=== PATIENT | female | born 1960 | race Two or more races ===

== ENCOUNTER 2018-08-20 15:47 | Emergency (ER) | payer MEDICARE, MEDICAID ==
[~2018-08-20] VITALS: Ht 165.1 cm; Wt 72.6 kg
[2018-08-20 16:45] LABS: Basophils # (auto) 0.1 uL; Basophils % (auto) 0.5 % (0.0-2.0); Eosinophils # (auto) 0 uL; Eosinophils % (auto) 0.1 % (0.0-7.0); Hematocrit 46.2 % (36.0-46.0); Hemoglobin 15.5 g/dL (12.2-16.2); Lymphocytes # (auto) 3.5 uL; Lymphocytes % (auto) 30.1 % (10.0-50.0); Mean Corpuscular Hemoglobin 30.4 pg (28.0-32.0); Mean Corpuscular Hgb Conc. 33.5 g/dL (32.0-36.0); Mean Corpuscular Volume 90.9 fL (80.0-100.0); Neutrophils % (auto) 60.3 % (37.0-80.0); Nucleated Red Blood Cells % 0.2 %; Platelet Count (auto) 265 10^3/uL (140-450); Red Blood Cells 5.08 10^6/uL (4.0-5.20); Red Cell Distribution Width 13.3 % (11.8-14.3); White Blood Cell 11.6 10^3/uL (4.4-10.8)
[2018-08-20 17:07] LABS: Anion Gap 5 (5-15); Blood Urea Nitrogen 20 mg/dL (7-18); Calcium 8.8 mg/dL (8.5-10.1); Carbon Dioxide 23 mmol/L (21-32); Chloride 111 mmol/L (98-107); Glucose 86 mg/dL (74-106); Sodium 139 mmol/L (136-145)
[2018-08-20 17:13] LABS: Alanine Aminotransferase 36 U/L (13-56); Alkaline Phosphatase 123 U/L (45-117); Aspartate Aminotransferase 18 U/L (15-37); BUN/Creatinine Ratio 30.3; Bilirubin, Total 0.5 mg/dL (0.2-1.0); GFR African American 118 mL/min; GFR Non-African American 97 mL/min; Total Protein 8.1 g/dL (6.4-8.2)
[2018-08-20 17:20] LABS: Potassium 2.9 mmol/L (3.5-5.1)
[2018-08-20] MEDS ORDERED: SODIUM CHLORIDE 0.9% 1,000 ML IV ONE (18:09)
[2018-08-20] MEDS ORDERED: ASPirin 81 mg TAB PO ONE (18:15)
[2018-08-20] MEDS ORDERED: POTASSIUM EFFERVESENT TAB 25 MEQ PO ONE (18:15)
[2018-08-20 20:21] VITALS: BP 138/74
== END 2018-08-20 22:17 | disposition home or self-care (01) ==
LOC: ER 15:47 → EDBD 15:47 → ER 22:17
DX: R07.9 Chest pain, unspecified (principal); M06.9 Rheumatoid arthritis, unspecified; E87.6 Hypokalemia; R51 Headache; R06.02 Shortness of breath; I10 Essential (primary) hypertension; F17.210 Nicotine dependence, cigarettes, uncomplicated; Z88.5 Allergy status to narcotic agent; Z90.49 Acquired absence of other specified parts of digestive tract; Z90.710 Acquired absence of both cervix and uterus
CPT/HCPCS: 36415; 71046; 80053; 83735; 84484; 85025; 93005; 94761

== ENCOUNTER 2021-01-24 06:08 | Inpatient (IN) | payer MEDICARE, MEDICAID ==
[~2021-01-24] VITALS: Ht 165.1 cm; Wt 85.4 kg
[~2021-01-24 06:08] MED LIST: ATOR10TA PO; CARI-277 PO; HYDR-4188 PO; HYDR25TA4 PO; LEFL20TA PO; LORA-622 PO; METO-289 PO; OMEP20TA PO; OXYC20TA69 PO; PREG75CA PO; ROPI1TAB4 PO; TRAZ-184 PO; VENL-192 PO
[2021-01-24] MEDS ORDERED: ceFAZolin 1GM/50ML 100 ML IV ONE (06:48)
[2021-01-24] MEDS ORDERED: fentaNYL CITRATE 100 MCG/2 ML VL ONE (06:54)
[2021-01-24] MEDS ORDERED: fentaNYL CITRATE 5 ML ONE (06:54)
[2021-01-24] MEDS ORDERED: ONDANSETRON HCL 4 MG/2 ML VIAL ONE (06:55)
[2021-01-24] MEDS ORDERED: MIDAZOLAM HCL 1MG/1ML-2 ML VIAL ONE (06:55)
[2021-01-24] MEDS ORDERED: PROPOFOL 10 MG/ML 20 ML IV ONE (06:55)
[2021-01-24] MEDS ORDERED: ROCURONIUM 10MG/ML 10ML VIAL IV ONE (06:55)
[2021-01-24] MEDS ORDERED: SODIUM CHLORIDE LOCK 10 ML ONE (06:55)
[2021-01-24] MEDS ORDERED: TRANEXAMIC ACID 20 ML ONE (07:08)
[2021-01-24] MEDS ORDERED: BACITRACIN INJ 50000 UNIT VIAL ONE (07:08)
[2021-01-24] MEDS ORDERED: BUPIVACAINE HCL 50 ML ONE (07:14)
[2021-01-24] MEDS ORDERED: SUCCINYLCHOLINE CHLORIDE 20 MG/ML 10ML VIAL IV ONE (07:15)
[2021-01-24] MEDS ORDERED: METOCLOPRAMIDE HCL 5MG/ml INJ 2ml VIAL IV PRN (08:00)
[2021-01-24] MEDS ORDERED: HYDROmorphone HCL 2 MG/ML VL IV PRN ×3 (08:00→10:30)
[2021-01-24] MEDS ORDERED: fentaNYL CITRATE 100 MCG/2 ML VL IV PRN (08:00)
[2021-01-24] MEDS ORDERED: VANCOMYCIN HCL 1000 MG VL ONE (08:11)
[2021-01-24] MEDS ORDERED: NEOSTIGMINE 1 MG/ML INJ (10mg/10ML VIAL) ONE (08:26)
[2021-01-24] MEDS ORDERED: DexAMETHasone SOD PHOS 10MG/1ML VIAL INJ ONE ×2 (08:26→11:25)
[2021-01-24] MEDS ORDERED: GLYCOPYRROLATE 0.2 MG/ML 1ML VIAL ONE (08:26)
[2021-01-24] MEDS ORDERED: MEPERIDINE HCL (25 MG/ML) 1ML VIAL ONE ×2 (10:10→10:13)
[2021-01-24] MEDS ORDERED: MORPHINE SULF INJ 2 MG/ML SYRINGE 1ML IV PRN (10:30)
[2021-01-24] MEDS ORDERED: NITROGLYCERIN 0.4 MG SL TAB SL PRN (10:30)
[2021-01-24] MEDS: HYDROmorphone HCL 2 MG/ML VL ONE ×4 (10:30→14:00)
[2021-01-24] MEDS: LACTATED RINGER'S 1,000 ML IV SCH ×2 (10:30→21:38)
[2021-01-24] MEDS ORDERED: BUPIVACAINE 0.5% P/F INJ 10 ML VIAL ONE ×2 (10:49→10:51)
[2021-01-24] MEDS: ceFAZolin 1GM/50ML 50 ML IV SCH ×2 (12:18→17:57)
[2021-01-24 16:34] VITALS: BP 142/67
[2021-01-24 16:44] VITALS: BP 141/61
[2021-01-24 16:48] VITALS: BP 141/61
[2021-01-24] MEDS: ONDANSETRON HCL 4 MG/2 ML VIAL IV PRN (17:39)
[2021-01-24] MEDS: HYDROmorphone HCL 2 MG/ML VL IV PRN ×3 (17:40→23:24)
[2021-01-24] MEDS: KETOROLAC TROMETH 30 MG/ML 1ML VIAL IV SCH (21:39)
[2021-01-24] MEDS: DOCUSATE SOD 100 MG CAP PO SCH (21:39)
[2021-01-24 22:00] VITALS: BP 134/59
[2021-01-25] VITALS (7 sets, daily range): BP systolic 143–181; BP diastolic 64–72
[2021-01-25] MEDS: ceFAZolin 1GM/50ML 50 ML IV SCH (01:07)
[2021-01-25] MEDS: HYDROmorphone HCL 2 MG/ML VL IV PRN ×10 (01:29→22:53)
[2021-01-25] MEDS: LACTATED RINGER'S 1,000 ML IV SCH ×2 (06:18→15:06)
[2021-01-25 06:45] LABS: Hemoglobin 12.3 g/dL (12.2-16.2)
[2021-01-25] MEDS ORDERED: ROPI2TAB31 PO (06:59)
[2021-01-25] MEDS ORDERED: CARI-277 PO (06:59)
[2021-01-25] MEDS ORDERED: VENL-192 PO (06:59)
[2021-01-25] MEDS ORDERED: TRAZ100T3 PO (06:59)
[2021-01-25] MEDS ORDERED: METO-289 PO (06:59)
[2021-01-25] MEDS ORDERED: PREG75CA PO (06:59)
[2021-01-25] MEDS ORDERED: HYDR-4188 PO (06:59)
[2021-01-25] MEDS ORDERED: OXY5T PO (06:59)
[2021-01-25] MEDS ORDERED: LEFL20TA PO (06:59)
[2021-01-25 07:06] LABS: Albumin 3.1 g/dL (3.4-5.0); BUN/Creatinine Ratio 29.6; Bilirubin, Total 0.5 mg/dL (0.2-1.0); Calcium 8.4 mg/dL (8.5-10.1); Total Protein 6.1 g/dL (6.4-8.2)
[2021-01-25] MEDS: KETOROLAC TROMETH 30 MG/ML 1ML VIAL IV SCH ×2 (09:41→21:34)
[2021-01-25] MEDS: hydrOXYchloroQUINE SULFATE 200 MG TAB PO SCH ×2 (09:46→21:35)
[2021-01-25] MEDS: DOCUSATE SOD 100 MG CAP PO SCH ×2 (09:46→21:35)
[2021-01-25] MEDS: PANTOPRAZOLE 40 MG TAB PO SCH (09:46)
[2021-01-25] MEDS: METOPROLOL SUCCINATE XL 50 MG TAB PO SCH (09:47)
[2021-01-25] MEDS: LORATADINE 10 MG TAB PO SCH (09:47)
[2021-01-25] MEDS: HCTZ 25 MG TAB PO SCH (09:48)
[2021-01-25] MEDS: PREGABALIN CAPSULE 75 MG CAP PO SCH ×2 (09:48→21:35)
[2021-01-25] MEDS: ONDANSETRON HCL 4 MG/2 ML VIAL IV PRN ×2 (10:54→22:58)
[2021-01-25] MEDS: VENLAFAXINE HCL 25MG TABLET PO SCH (10:55)
[2021-01-25] MEDS ORDERED: LABETALOL HCL 5 MG/ML 4ML SYRINGE IV PRN ×2 (13:45→19:15)
[2021-01-25] MEDS: CARISOPRODOL 350 MG TAB PO SCH ×2 (15:05→21:35)
[2021-01-25] MEDS ORDERED: hydrALAZINE HCL 25 MG TAB PO ONE (17:30)
[2021-01-25] MEDS ORDERED: ATORVASTATIN 20 MG TAB PO SCH (18:00)
[2021-01-25] MEDS: hydrALAZINE HCL 25 MG TAB PO SCH (21:35)
[2021-01-25] MEDS ORDERED: ROPINIROLE HYDROCHLORIDE 1 MG PO PRN (22:00)
[2021-01-25] MEDS ORDERED: traZODone HCL 50 MG TAB PO PRN (22:00)
[2021-01-26] MEDS: HYDROmorphone HCL 2 MG/ML VL IV PRN ×6 (01:04→15:52)
[2021-01-26] MEDS: LACTATED RINGER'S 1,000 ML IV SCH ×2 (03:05→16:25)
[2021-01-26] MEDS: OXYCODONE W/ ACETAMINOPHEN 5/325MG TABLET PO PRN ×2 (04:42)
[2021-01-26 05:00] VITALS: BP 154/70
[2021-01-26] MEDS: hydrALAZINE HCL 25 MG TAB PO SCH ×2 (05:48→13:45)
[2021-01-26] MEDS: CARISOPRODOL 350 MG TAB PO SCH ×2 (05:48→13:45)
[2021-01-26 07:37] LABS: Hematocrit 39.6 % (36.0-46.0); Hemoglobin 13.1 g/dL (12.2-16.2)
[2021-01-26 09:00] VITALS: BP 146/73
[2021-01-26] MEDS: DOCUSATE SOD 100 MG CAP PO SCH (09:12)
[2021-01-26] MEDS: PREGABALIN CAPSULE 75 MG CAP PO SCH (09:13)
[2021-01-26] MEDS: hydrOXYchloroQUINE SULFATE 200 MG TAB PO SCH (09:13)
[2021-01-26] MEDS: METOPROLOL SUCCINATE XL 50 MG TAB PO SCH (09:15)
[2021-01-26] MEDS: PANTOPRAZOLE 40 MG TAB PO SCH (09:15)
[2021-01-26] MEDS: HCTZ 25 MG TAB PO SCH (09:15)
[2021-01-26] MEDS: VENLAFAXINE HCL 25MG TABLET PO SCH (09:16)
[2021-01-26] MEDS: LORATADINE 10 MG TAB PO SCH (09:16)
[2021-01-26] MEDS: KETOROLAC TROMETH 30 MG/ML 1ML VIAL IV SCH (10:53)
[2021-01-26 13:00] VITALS: BP 144/80
[2021-01-26] MEDS ORDERED: PNEUMOCOCCAL VACC POLYS 25 MCG/0.5 ML VIAL IM ONE (14:00)
[2021-01-26 14:53] VITALS: BP 124/55
[2021-01-26 17:00] VITALS: BP 150/77
== END 2021-01-26 17:20 | disposition home or self-care (01) | DRG 483 ==
LOC: SUR 06:08 → OVERFLOW 10:21 → CENTRAL 14:30 → TELE-CENTR 01-25 19:22
PROVIDERS: ADMIT Orthopaedic Surgery Sports Medicine; ATTEND Internal Medicine
PROC: 0RRJ00Z Replacement of Right Shoulder Joint with Reverse Ball and Socket Synthetic Substitute, Open Approach (ICD-10-PCS; principal; 2021-01-24 07:25)
DX: M19.011 Primary osteoarthritis, right shoulder (principal); M06.9 Rheumatoid arthritis, unspecified; E78.5 Hyperlipidemia, unspecified; G62.9 Polyneuropathy, unspecified; G89.29 Other chronic pain; I10 Essential (primary) hypertension; M19.90 Unspecified osteoarthritis, unspecified site; Z20.822 Contact with and (suspected) exposure to COVID-19; Z88.6 Allergy status to analgesic agent
CPT/HCPCS: 36415; 73020; 80053; 85014; 85018; 86850; 86900; 86901; A4565; G0378; J0330; J0690; J1100; J1885; J2250; J2405; J2704; J3490

== ENCOUNTER 2023-05-09 06:26 | Inpatient (IN) | payer MEDICARE, MEDICAID ==
[2023-05-07 12:43] LABS: Basophils # (auto) 0.1 10 ^3/uL (0-0.2); Basophils % (auto) 0.7 % (0.0-2.0); Eosinophils # (auto) 0 10 ^3/uL (0-0.8); Eosinophils % (auto) 0.2 % (0.0-7.0); Hematocrit 42.7 % (36.0-46.0); Hemoglobin 14.4 g/dL (12.2-16.2); Lymphocytes # (auto) 2.4 10 ^3/uL (0.4-5.4); Lymphocytes % (auto) 29.6 % (10.0-50.0); Mean Corpuscular Hgb Conc. 33.7 g/dL (32.0-36.0); Mean Corpuscular Volume 91.9 fL (80.0-100.0); Monocytes # (auto) 0.4 10 ^3/uL (0-1.3); Monocytes % (auto) 4.9 % (0.0-12.0); Neutrophils # (auto) 5.4 10 ^3/uL (1.6-8.6); Neutrophils % (auto) 64.6 % (37.0-80.0); Nucleated Red Blood Cells % 0.1 %; Red Blood Cells 4.64 10^6/uL (4.0-5.20); Red Cell Distribution Width 12.5 % (11.8-14.3); White Blood Cell 8.3 10^3/uL (4.4-10.8)
[2023-05-07 12:44] LABS: INR 1.09 (0.9-1.15); Partial Thromboplastin Time 26.3 SEC (24.5-34.5); Prothrombin Time 11.4 sec (9.3-11.8)
[2023-05-07 13:10] LABS: Urine Bacteria NONE SEEN /hpf (None Seen); Urine Blood Negative /uL (Negative); Urine Clarity Clear (Clear); Urine Color Yellow (Yellow); Urine Mucus FEW (None Seen); Urine Protein, UAD 1+ (Negative); Urine Specific Gravity 1.027 (1.001-1.035); Urine Urobilinogen Normal (Negative); Urine WBC <1 /hpf (0 - 5); Urine pH 6.5 (5.0-8.0)
[2023-05-07 13:11] LABS: Alanine Aminotransferase 31 U/L (7-40); Albumin 4.5 g/dL (3.2-4.8); Alkaline Phosphatase 176 U/L (46-116); Anion Gap 5.9 (5-15); Aspartate Aminotransferase 18 U/L (13-40); BUN/Creatinine Ratio 18.3 (10.0-20.0); Bilirubin, Total 0.6 mg/dL (0.2-1.0); Blood Urea Nitrogen 13 mg/dL (9-23); Calcium 9.7 mg/dL (8.5-10.1); Carbon Dioxide 26.1 mmol/L (20-30); Chloride 106 mmol/L (98-107); Glucose 104 mg/dL (74-106); Potassium 3.2 mmol/L (3.5-5.1); Sodium 138 mmol/L (136-145); Total Protein 7.1 g/dL (5.7-8.2)
[~2023-05-09] VITALS: Ht 165.1 cm; Wt 82.7 kg
[~2023-05-09 06:26] MED LIST changes: -ATOR10TA PO; +ATOR20TA50 PO; -CARI-277 PO; -LEFL20TA PO; -LORA-622 PO; -OXYC20TA69 PO; +OXYC20TA72 PO; +PERCOT PO; +PREG-110 PO; -PREG75CA PO; -ROPI1TAB4 PO; +ROPI2TAB31 PO; -TRAZ-184 PO; -VENL-192 PO
[2023-05-09] MEDS ORDERED: TRANEXAMIC ACID 20 ML ONE (07:13)
[2023-05-09] MEDS ORDERED: ROCURONIUM 10MG/ML 10ML VIAL IV ONE (07:14)
[2023-05-09] MEDS ORDERED: SUCCINYLCHOLINE CHLORIDE 20 MG/ML 10ML VIAL IV ONE (07:14)
[2023-05-09] MEDS ORDERED: HYDROmorphone HCL 2 MG/ML VL/or syr ONE (07:16)
[2023-05-09] MEDS ORDERED: HYDROCORTISONE SOD SUCC 100 MG/2ML INJ VIAL ONE (07:17)
[2023-05-09] MEDS ORDERED: LIDOCAINE 2% (LOCAL ANESTH.) PF 5ml SDV ONE (07:17)
[2023-05-09] MEDS ORDERED: PROPOFOL 10 MG/ML 20 ML IV ONE ×2 (07:17→09:38)
[2023-05-09] MEDS ORDERED: ONDANSETRON HCL 4 MG/2 ML VIAL ONE (07:17)
[2023-05-09] MEDS ORDERED: fentaNYL CITRATE 100 MCG/2 ML VL ONE (07:17)
[2023-05-09] MEDS ORDERED: MIDAZOLAM HCL 2MG/2ML 2ml VIAL (1mg/ml) ONE (07:17)
[2023-05-09] MEDS ORDERED: GLYCOPYRROLATE 0.2 MG/ML 1ML VIAL ONE (07:21)
[2023-05-09] MEDS ORDERED: ceFAZolin 1GM/50ML 100 ML IV ONE (07:34)
[2023-05-09] MEDS ORDERED: ceFAZolin 1GM/50ML 50 ML IV ONE (07:38)
[2023-05-09 11:57] VITALS: O2SAT 100
[2023-05-09] MEDS ORDERED: MORPHINE SULFATE INJ 2 MG/ml SYRG IV PRN ×2 (12:00)
[2023-05-09] MEDS ORDERED: ACETAMINOPHEN 325 MG TAB PO PRN (12:00)
[2023-05-09] MEDS ORDERED: ceFAZolin 1GM/50ML 50 ML IV SCH (12:00)
[2023-05-09] MEDS ORDERED: NITROGLYCERIN 0.4 MG SL TAB SL PRN (12:00)
[2023-05-09] MEDS ORDERED: ONDANSETRON HCL 4 MG/2 ML VIAL IV PRN ×2 (12:00→12:15)
[2023-05-09] MEDS: CYCLOBENZAPRINE HCL 10 MG TAB PO SCH ×2 (12:18→22:43)
[2023-05-09] MEDS: HYDROmorphone HCL 2 MG/ML VL/or syr IV PRN ×4 (12:20→14:01)
[2023-05-09 15:40] VITALS: PULSE 67; RESP 18; O2SAT 98
[2023-05-09 16:00] VITALS: BP 124/60; PULSE 67; RESP 18; TEMP 98.3; O2SAT 98
[2023-05-09] MEDS: OXYCODONE W/ ACETAMINOPHEN 5/325MG TABLET PO PRN ×2 (17:11→22:46)
[2023-05-09] MEDS ORDERED: DICL1GEL73 TOP (17:13)
[2023-05-09] MEDS: ceFAZolin 1GM/50ML 50 ML IV SCH (18:03)
[2023-05-09] MEDS: D5W/SOD CHLO 0.9% 1,000 ML IV SCH ×2 (18:04→22:00)
[2023-05-09 20:00] VITALS: PULSE 67; PULSE 73
[2023-05-09] MEDS: HYDROcodone-ACET 10/325MG TAB PO PRN (20:27)
[2023-05-09 22:00] VITALS: BP 114/60; PULSE 78; RESP 18; TEMP 97.8; O2SAT 96
[2023-05-09] MEDS: DOCUSATE SOD 100 MG CAP PO SCH (22:43)
[2023-05-09] MEDS: PRAMIPEXOLE DIHYDROCHLORIDE MO 0.25 MG TAB PO SCH (22:44)
[2023-05-09] MEDS: VENLAFAXINE HCL 37.5mg XR cap PO SCH (22:44)
[2023-05-09] MEDS: hydrOXYchloroQUINE SULFATE 200 MG TAB PO SCH (22:45)
[2023-05-09] MEDS: PREGABALIN 25 MG CAP PO SCH (22:45)
[2023-05-10] MEDS: ceFAZolin 1GM/50ML 50 ML IV SCH (00:15)
[2023-05-10] MEDS ORDERED: MELATONIN 5 MG TAB PO ONE (01:30)
[2023-05-10 05:09] VITALS: BP 111/67; PULSE 69; RESP 20; TEMP 98.2; O2SAT 95
[2023-05-10] MEDS: CYCLOBENZAPRINE HCL 10 MG TAB PO SCH ×3 (05:14→23:27)
[2023-05-10] MEDS: OXYCODONE W/ ACETAMINOPHEN 5/325MG TABLET PO PRN ×4 (05:15→20:45)
[2023-05-10] MEDS: D5W/SOD CHLO 0.9% 1,000 ML IV SCH ×3 (05:16→18:18)
[2023-05-10 06:10] LABS: Chloride 113 mmol/L (98-107); Potassium 3.9 mmol/L (3.5-5.1); Sodium 142 mmol/L (136-145)
[2023-05-10 06:11] LABS: Calcium 8.6 mg/dL (8.5-10.1)
[2023-05-10 06:16] LABS: BUN/Creatinine Ratio 17.9 (10.0-20.0); Basophils # (auto) 0 10 ^3/uL (0-0.2); Basophils % (auto) 0.1 % (0.0-2.0); Blood Urea Nitrogen 10 mg/dL (9-23); Eosinophils # (auto) 0 10 ^3/uL (0-0.8); Glucose 146 mg/dL (74-106); Hematocrit 33.3 % (36.0-46.0); Hemoglobin 11.4 g/dL (12.2-16.2); Lymphocytes # (auto) 1.1 10 ^3/uL (0.4-5.4); Lymphocytes % (auto) 10.2 % (10.0-50.0); Mean Corpuscular Hemoglobin 31.2 pg (28.0-32.0); Mean Corpuscular Hgb Conc. 34.3 g/dL (32.0-36.0); Mean Corpuscular Volume 90.9 fL (80.0-100.0); Monocytes # (auto) 0.3 10 ^3/uL (0-1.3); Neutrophils # (auto) 9.7 10 ^3/uL (1.6-8.6); Neutrophils % (auto) 86.7 % (37.0-80.0); Red Blood Cells 3.67 10^6/uL (4.0-5.20); Red Cell Distribution Width 12.7 % (11.8-14.3); White Blood Cell 11.2 10^3/uL (4.4-10.8)
[2023-05-10 08:00] VITALS: BP 116/60; PULSE 65; PULSE 68; RESP 18; TEMP 98.6; O2SAT 96
[2023-05-10] MEDS: hydrOXYchloroQUINE SULFATE 200 MG TAB PO SCH ×2 (09:17→23:28)
[2023-05-10] MEDS: DOCUSATE SOD 100 MG CAP PO SCH ×2 (09:18→23:28)
[2023-05-10] MEDS: VENLAFAXINE HCL 37.5mg XR cap PO SCH ×2 (09:18→23:28)
[2023-05-10] MEDS: FAMOTIDINE 20 MG TAB PO SCH (09:18)
[2023-05-10] MEDS: PREGABALIN 25 MG CAP PO SCH ×2 (09:18→23:28)
[2023-05-10 12:00] VITALS: BP 115/53; PULSE 70; RESP 18; TEMP 98.8; O2SAT 100
[2023-05-10 16:00] VITALS: BP 108/54; PULSE 73; RESP 20; TEMP 99.1; O2SAT 92
[2023-05-10 20:00] VITALS: PULSE 73; PULSE 74; RESP 18; O2SAT 98
[2023-05-10 22:00] VITALS: BP 106/47; PULSE 73; RESP 18; TEMP 98.6; O2SAT 95
[2023-05-10] MEDS: PRAMIPEXOLE DIHYDROCHLORIDE MO 0.25 MG TAB PO SCH (23:28)
[2023-05-11] VITALS (8 sets, daily range): BP systolic 108–148; BP diastolic 45–77; PULSE 63–81; RESP 16–19; TEMP 97.5–98.7; O2SAT 93–98
[2023-05-11] MEDS: OXYCODONE W/ ACETAMINOPHEN 5/325MG TABLET PO PRN ×4 (04:48→17:49)
[2023-05-11] MEDS: D5W/SOD CHLO 0.9% 1,000 ML IV SCH (05:04)
[2023-05-11] MEDS: CYCLOBENZAPRINE HCL 10 MG TAB PO SCH ×3 (06:02→21:50)
[2023-05-11] MEDS: PREGABALIN 25 MG CAP PO SCH ×2 (09:29→21:59)
[2023-05-11] MEDS: FAMOTIDINE 20 MG TAB PO SCH (09:29)
[2023-05-11] MEDS: VENLAFAXINE HCL 37.5mg XR cap PO SCH ×2 (09:29→21:50)
[2023-05-11] MEDS: DOCUSATE SOD 100 MG CAP PO SCH ×2 (09:29→21:50)
[2023-05-11] MEDS: hydrOXYchloroQUINE SULFATE 200 MG TAB PO SCH ×3 (09:29→22:00)
[2023-05-11] MEDS: PRAMIPEXOLE DIHYDROCHLORIDE MO 0.25 MG TAB PO SCH (21:50)
[2023-05-12] MEDS: OXYCODONE W/ ACETAMINOPHEN 5/325MG TABLET PO PRN ×4 (01:27→20:23)
[2023-05-12 05:00] VITALS: BP 117/52; PULSE 70; RESP 17; TEMP 98.1; O2SAT 100
[2023-05-12] MEDS: CYCLOBENZAPRINE HCL 10 MG TAB PO SCH ×3 (06:07→21:55)
[2023-05-12 08:00] VITALS: BP 108/45; PULSE 66; PULSE 67; PULSE 69; RESP 18; TEMP 97.9; O2SAT 98
[2023-05-12] MEDS: hydrOXYchloroQUINE SULFATE 200 MG TAB PO SCH ×4 (08:56→22:00)
[2023-05-12] MEDS: DOCUSATE SOD 100 MG CAP PO SCH ×2 (08:56→21:55)
[2023-05-12] MEDS: PREGABALIN 25 MG CAP PO SCH ×2 (08:57→21:55)
[2023-05-12] MEDS: ATORVASTATIN 20 MG TAB PO SCH (08:57)
[2023-05-12] MEDS: FAMOTIDINE 20 MG TAB PO SCH (08:57)
[2023-05-12] MEDS: VENLAFAXINE HCL 37.5mg XR cap PO SCH ×2 (08:57→21:54)
[2023-05-12] MEDS: HCTZ 25 MG TAB PO SCH (09:01)
[2023-05-12] MEDS: METOPROLOL SUCCINATE XL 50 MG TAB PO SCH (09:01)
[2023-05-12 09:28] VITALS: BP 132/70; PULSE 67; RESP 18; TEMP 98.3; O2SAT 94
[2023-05-12 13:26] VITALS: BP 98/52; PULSE 78; RESP 17; TEMP 98.5; O2SAT 94
[2023-05-12 20:00] VITALS: BP 136/77; PULSE 72; PULSE 79; RESP 18; TEMP 98.6; O2SAT 95
[2023-05-12] MEDS: PRAMIPEXOLE DIHYDROCHLORIDE MO 0.25 MG TAB PO SCH (21:54)
[2023-05-12 22:00] VITALS: BP 136/77; PULSE 72; RESP 18; TEMP 98.6; O2SAT 95
[2023-05-13] VITALS (7 sets, daily range): BP systolic 102–147; BP diastolic 49–63; PULSE 60–71; RESP 18–19; TEMP 97.9–98.5; O2SAT 94–99
[2023-05-13] MEDS: OXYCODONE W/ ACETAMINOPHEN 5/325MG TABLET PO PRN ×4 (02:25→21:31)
[2023-05-13] MEDS: CYCLOBENZAPRINE HCL 10 MG TAB PO SCH ×3 (06:03→21:30)
[2023-05-13] MEDS: PREGABALIN 25 MG CAP PO SCH ×2 (08:37→21:31)
[2023-05-13] MEDS: FAMOTIDINE 20 MG TAB PO SCH (08:38)
[2023-05-13] MEDS: ATORVASTATIN 20 MG TAB PO SCH (08:38)
[2023-05-13] MEDS: VENLAFAXINE HCL 37.5mg XR cap PO SCH ×2 (08:38→21:30)
[2023-05-13] MEDS: DOCUSATE SOD 100 MG CAP PO SCH ×2 (08:38→21:30)
[2023-05-13] MEDS: METOPROLOL SUCCINATE XL 50 MG TAB PO SCH (08:38)
[2023-05-13] MEDS: HCTZ 25 MG TAB PO SCH (08:39)
[2023-05-13] MEDS: hydrOXYchloroQUINE SULFATE 200 MG TAB PO SCH ×4 (08:40→21:33)
[2023-05-13] MEDS: HYDROcodone-ACET 10/325MG TAB PO PRN (17:53)
[2023-05-13] MEDS: PRAMIPEXOLE DIHYDROCHLORIDE MO 0.25 MG TAB PO SCH (21:30)
[2023-05-14] MEDS: OXYCODONE W/ ACETAMINOPHEN 5/325MG TABLET PO PRN ×2 (04:26→10:34)
[2023-05-14 04:56] VITALS: BP 110/55; PULSE 66; RESP 18; TEMP 98.6; O2SAT 98
[2023-05-14] MEDS: CYCLOBENZAPRINE HCL 10 MG TAB PO SCH (05:40)
[2023-05-14 08:00] VITALS: BP 106/55; PULSE 56; PULSE 64; RESP 15; TEMP 98.6; O2SAT 95
[2023-05-14 09:13] VITALS: BP 106/55; PULSE 64; RESP 15; TEMP 98.6; O2SAT 95
[2023-05-14] MEDS: VENLAFAXINE HCL 37.5mg XR cap PO SCH (10:31)
[2023-05-14] MEDS: DOCUSATE SOD 100 MG CAP PO SCH (10:31)
[2023-05-14] MEDS: ATORVASTATIN 20 MG TAB PO SCH (10:32)
[2023-05-14] MEDS: HCTZ 25 MG TAB PO SCH (10:32)
[2023-05-14] MEDS: hydrOXYchloroQUINE SULFATE 200 MG TAB PO SCH (10:33)
[2023-05-14] MEDS: METOPROLOL SUCCINATE XL 50 MG TAB PO SCH (10:33)
[2023-05-14] MEDS: PREGABALIN 25 MG CAP PO SCH (10:33)
[2023-05-14 12:52] VITALS: BP 87/42; PULSE 64; RESP 15; TEMP 97.8; O2SAT 94
[2023-05-14 13:00] VITALS: BP 99/58
[2023-05-14 13:19] VITALS: BP 106/55; PULSE 64; RESP 15; TEMP 97.8; O2SAT 94
== END 2023-05-14 15:00 | disposition home health service (06) | DRG 460 ==
LOC: SUR 06:26 → TELE 11:55 → TELE-CENTR 14:59 → CENTRAL 05-14 11:50
PROVIDERS: ADMIT Orthopaedic Surgery; ATTEND Internal Medicine
PROC: 0SG0071 Fusion of Lumbar Vertebral Joint with Autologous Tissue Substitute, Posterior Approach, Posterior Column, Open Approach (ICD-10-PCS; 2023-05-09)
PROC: 00NY0ZZ Release Lumbar Spinal Cord, Open Approach (ICD-10-PCS; 2023-05-09)
PROC: 01NB0ZZ Release Lumbar Nerve, Open Approach (ICD-10-PCS; 2023-05-09)
PROC: 4A11X4G Monitoring of Peripheral Nervous Electrical Activity, Intraoperative, External Approach (ICD-10-PCS; 2023-05-09)
PROC: 0SP004Z Removal of Internal Fixation Device from Lumbar Vertebral Joint, Open Approach (ICD-10-PCS; principal; 2023-05-09 07:54)
DX: M48.061 Spinal stenosis, lumbar region without neurogenic claudication (principal); F02.83 Dementia in other diseases classified elsewhere, unspecified severity, with mood disturbance; M96.1 Postlaminectomy syndrome, not elsewhere classified; F32.A Depression, unspecified; I10 Essential (primary) hypertension; M06.9 Rheumatoid arthritis, unspecified; M54.16 Radiculopathy, lumbar region; E78.2 Mixed hyperlipidemia; Z80.0 Family history of malignant neoplasm of digestive organs; Z82.0 Family history of epilepsy and other diseases of the nervous system
CPT/HCPCS: 36415; 72100; 76000; 80048; 80053; 81001; 85025; 85610; 85730; 86850; 86900; 86901; 97110; 97116; 97163; 97530; G0378; J0330; J0690; J2001; J2250; J2405; J2704; J7042